=== PATIENT | female | born 1950 | race African-American/Black ===

== ENCOUNTER → 2016-10-01 | Outpatient (CLI) | payer OTHER ==
[~2016-10-01] MED LIST: ASPI-482 PO; CALC1TAB75 PO; CETI10TA22 PO; DILT240C2 PO; HYDR-2666 PO; IBUP-1060 PO; MULT-658 PO; OMEG1CAP29 PO; PRAV80TA2 PO; TELM40TA PO; TURM500C7 PO; VITA150T PO
--- NOTE | 2016-10-02 16:42 | PAIN ---
DATE OF SERVICE: 10/01/2016 CHIEF COMPLAINT: Low back, right lower extremity pain. HISTORY OF PRESENT ILLNESS: This is a 66-year-old female who presents with history of pain in the low back and right lower extremity since mid July 2016. She fell while getting out of her car on some ice and reports that she had grabbed the steering wheel and then fell on her right side against the rocker panel of the lower door frame of the car and had some significant pain that was not there prior to the fall in this region of her low back and radiating to the right leg. Over the next week or two, the pain became worse in the right gluteus region and the right posterior lateral thigh, posterior calf as well as the anterior thigh, medial thigh and lower medial leg, throbbing in quality. Occasionally, in the left side anterior, but mostly only on the right. The patient reports that she has not had any other injuries since that time, now the pain is constant, sharp, throbbing, stabbing, shooting with radiating pain in the right leg is noted occasionally in left across the low back, changes during the day, worse with standing and walking, worse with changing positions, sitting for more than 15-20 minutes or standing for more than 15-20 minutes and also has an aching quality. The patient reports increasing with ambulation, when she is on her feet, which she is doing at her job. The patient reports it does not awaken her from sleep at night. She does feel better lying down. It does not affect her ability to walk significantly, but she has to stop and go and during driving, it hurts as well. The patient is taking some hydrocodone which helps usually in the morning and evening by about 50%. She had no other current therapies at this time. No chiropractic treatments or other physical therapies. She has been doing stretching on her own in the mornings, but that does not seem to help the pain very significantly. The patient reports no significant motor loss of the lower extremities, but significant fatigability especially with the right leg with standing and walking. The patient did have MRI scan dated 08/20/2016, lumbar spine showing degenerative disk disease throughout the lumbar spine without high-grade stenosis, but foraminal narrowing most notably at L4-L5 and L5-S1 with moderate hypertrophy in the facets at L4-L5 with foraminal narrowing, mild to moderate greater on the right, L5-S1 shows disk osteophyte complex without canal stenosis, [id number] left and [id number]-da-[id number] right foraminal narrowing. PAST MEDICAL HISTORY: Significant for hypertension, cigarette smoking, sinus congestion, headaches, arthritis. PREVIOUS SURGERY: Include hysterectomy in 2001. CURRENT MEDICATIONS: Include ibuprofen, diltiazem, Mycardis, turmeric, vitamin B complex, omega fish oils, Zyrtec, Centrum Silver, daily baby aspirin, hydrocodone, and pravastatin. ALLERGIES: The patient has no known drug allergies. FAMILY HISTORY: Significant for no major medical problems or conditions that she is aware of. SOCIAL HISTORY: The patient does smoke about 1 pack a day, has for the past 30+ years. Drinks alcohol only rarely works at the [employer], is mostly of her feet during her working day. REVIEW OF SYSTEMS: The patient's review of systems is positive for those items mentioned in history of present illness. All systems reviewed and otherwise negative. It is complete, full and well documented on the patient's chart. PHYSICAL EXAMINATION: VITAL SIGNS: The patient's blood pressure 167/82, pulse 98, respirations 18, temperature 98.5 degrees Fahrenheit, height is 5 feet 4 inches, weight is 213 pounds. GENERAL: The patient is awake, alert, oriented, appropriate, very pleasant demeanor. HEENT: Head shows normocephalic, atraumatic. Extraocular movements are intact and symmetrical. Oral cavity, mucous membranes are moist and pink. Dentition is intact. NECK: Shows anterior throat supple without palpable lymphadenopathy noted. Swallow reflex is symmetrical. Neck shows full rotational motion of cervical spine, both laterally greater than 45 degrees right and left as well as full extension, full forward flexion without significant tenderness or difficulty. CHEST: Shows normal on inspection. Breath sounds are clear to auscultation bilaterally. HEART: Shows S1 and S2 clear. No murmurs are auscultated. ABDOMEN: Soft, nontender, nondistended. No palpable organomegaly is noted. No rebound or guarding demonstrated. BACK: The patient's back shows spine grossly in midline with no bruises, lesions, rashes or scars noted. The patient shows normal appearing thoracic kyphosis and lumbar lordotic curvature on inspection and symmetrical in the paraspinous musculature throughout with palpation in lumbar paraspinous muscle shows some moderate tenderness with palpation only in the low lumbar distribution bilaterally, slightly more on the right than the left, but is symmetrical in appearance. No trigger points or radiation of pain, no tenderness over the sacrum or sacroiliac regions. No significant tenderness over the spinous processes. The patient has good rotation and motion of the lumbar spine, both laterally greater than 10 degrees right and left as well as extension greater than 10 degrees, forward flexion 45 degrees without significant decrease in pain. The patient's lower extremities showed deep tendon reflexes 2+ in the patellar, 1+ tendo-calcaneus tendons are equal. Motor exam is strong with dorsiflexion, extension at 5/5 as quadriceps and hamstring flexion and are equal. Peripheral pulses are 1+ posterior tibial and dorsalis pedis pulses. No peripheral edema is noted. No clubbing, no cyanosis. Lower extremities are warm and dry to touch, equal in color and appearance. Negative straight leg raise ____radicular symptoms both right and left. Gaenslen's and Danny's maneuvers are negative for reproduction of pain bilaterally as well. The patient is able to stand, stand on her toes without significant difficulty or pain reported, shows a normal appearing gait, not using any assistive devices to ambulate for short walk in the office today. IMPRESSION: 1. This is a 66-year-old female with injury approximately 2 months ago as noted with pain in the lower back and into the right lower extremity, most significantly with the radicular quality. 2. MRI scan as noted. 3. History of hypertension. 4. Arthritis. 5. Cigarette smoking. PLAN: Options were discussed with the patient including conservative medical management, physical therapy, interventional techniques. She would like to pursue most conservative course at this time, we will proceed physical therapy and this is ordered for the patient if not significantly improved, we will have her return for lumbar epidural steroid injection. Once preauthorization is obtained. She has some significant findings clinically as well as on the MRI scan and right-sided radicular pain. The patient will try the physical therapy first. Also, try Medrol Dosepak. She was given instruction as well as side effects to be aware with medication. The patient was encouraged to maintain the physical therapy regimen that is instructed for her at home as well and she will return once this is completed. LOLITA ALMONTE MD DR: [email or web address]/mk JOB#: [id number] / [id number] CROW Voss MD
== END | disposition home or self-care (01) ==
LOC: PNCL 08:58
PROVIDERS: ATTEND Anesthesiology
DX: M54.5 Low back pain (principal); M79.604 Pain in right leg
CPT/HCPCS: 99214